=== PATIENT | female | born 2000 | race African-American/Black ===

== ENCOUNTER 2021-02-17 12:27 | Outpatient (REF) | payer SELFPAY ==
[2021-02-20 07:44] LABS: HBS Num1 9.16 mIU/mL (0-7.99)
[2021-02-20 09:01] LABS: HBS Num2 8.64 mIU/mL (0-7.99); HBS Num3 8.97 mIU/mL (0-7.99); ~Hepatitis B Surface Antibody GRAYZONE (Nonreactive)
[2021-02-20 14:51] LABS: TS Negative Control Passed; TS Panel A 0; TS Panel B 0; TS Positive Control Passed; TSpotTB Negative (SeeBelow)
== END 2021-02-17 12:28 | disposition home or self-care (01) ==
LOC: HO.LAB 12:27
PROVIDERS: Visit Provider Internal Medicine
DX: Z02.1 Encounter for pre-employment examination (principal)
CPT/HCPCS: 36415; 86481; 86706

== ENCOUNTER 2024-05-10 10:21 | Emergency (ER) | payer OTHER, SELFPAY ==
--- NOTE | ~2024-05-10 | CT_ITS ---
EXAMINATION: CT ABDOMEN AND PELVIS WITHOUT CONTRAST CLINICAL INFORMATION: Abdominal pain, diarrhea COMPARISON: None available. TECHNIQUE: Multidetector volumetric imaging was performed from the superior aspect of the liver through the pubic symphysis. Sagittal and coronal reformatted images were obtained on the technologist's workstation. This CT examination was performed using dose optimization techniques as appropriate, variously including the following: *Automated exposure control *Adjustment of mA and/or kV according to patient size (this includes techniques or standardized protocols for targeted exams where dose is matched to indication/reason for exam; i.e. extremities or head) *Use of iterative reconstruction technique DLP: 982 mGy-cm FINDINGS: LUNG BASES: The visualized lung bases are unremarkable. LIVER, GALLBLADDER, AND BILIARY TREE: The liver is diffusely low in attenuation in keeping with hepatic steatosis, but otherwise normal in size and shape. No focal hepatic lesion or biliary ductal dilatation is present. The gallbladder is unremarkable with no evidence of radiopaque gallstones, gallbladder wall thickening, or obvious pericholecystic inflammatory changes. PANCREAS: Unremarkable. SPLEEN: Unremarkable. ADRENAL GLANDS: Unremarkable. KIDNEYS AND URETERS: The kidneys are normal in size, shape, and attenuation. No hydronephrosis, hydroureter, or calculi seen. No perinephric stranding. BLADDER: Limited evaluation due to streak artifact from bilateral hip hardware. But appears decompressed. GASTROINTESTINAL TRACT: The small and large bowel are unremarkable. The appendix is unremarkable. ABDOMINAL WALL: No significant hernia is appreciated. LYMPH NODES: Multiple prominent mesenteric lymph nodes, none of which meet pathologic size criteria and are nonspecific. VASCULAR: Unremarkable. PELVIC VISCERA: Unremarkable. OSSEOUS STRUCTURES: Unremarkable. CT/CT abdomen pelvis wo IV con IMPRESSION: 1. No acute abnormality within the abdomen or pelvis. 2. Hepatic steatosis. 3. Multiple prominent mesenteric lymph nodes, none of which meet pathologic size criteria and are nonspecific. Fleischner guidelines were followed. Electronically signed by: Lorna Burton MD 05/10/2024 12:59 PM EDT
[2024-05-10 10:37] VITALS: BP 140/94; PULSE 79; RESP 16; TEMP 36.6; O2SAT 99; BMI 45.7
--- NOTE | 2024-05-10 11:00 | ED.NAVMDI ---
HPI - Nausea/Vomiting/Diarrhea General Chief complaint: Nausea/Vomiting/Diarrhea Stated complaint: Fever diarrhea Time Seen by Provider: 05/10/24 10:58 Source: patient Mode of arrival: ambulatory Limitations: no limitations History of Present Illness ED Provider: Rhina Acosta APRN HPI Narrative: 23-year-old female with no known medical history presents to the ER with 2 weeks of intermittent diarrhea and mid abdominal pain. Patient reports having more than 10 episodes daily of nonbloody diarrhea. There is no associated nausea, vomiting. This morning she had a temperature of 100.3 degrees. No urinary symptoms. Of note she did recently finish a course of amoxicillin for a sinus infection. No recent travel. No sick contact. She does work in the school system. Associated nausea: No Related Data Previous Rx's ?Medication ?Instructions ?Recorded dicyclomine 10 mg capsule 10 mg PO TID PRN abdominal pain 05/10/24 #21 caps Allergies Allergy/AdvReac Type Severity Reaction Status Date / Time No Known Allergies Allergy Verified 05/10/24 10:37 Review of Systems Review of Systems: Yes all other systems are reviewed and are negative Constitutional: Constitutional: Reports no additional constitutional complaints, Denies body ache(s), Denies chills, Reports fever(s) (max temp 100.3), Denies headache(s) and Denies weakness Eyes: Eyes: Reports no additional eye complaints and Denies change in vision ENT: Reports system reviewed and no additional complaints, except as documented, Denies dizziness, Denies headache(s), Denies nasal congestion, Denies nasal discharge and Denies neck pain Cardiovascular: Cardiovascular: Reports no additional cardiovascular complaints, Denies chest pain, Denies leg edema and Denies dyspnea Respiratory: Respiratory: Reports no additional respiratory complaints, Denies cough and Denies dyspnea Gastrointestinal: Gastrointestinal: Reports no additional gastrointestinal complaints, Reports abdominal pain, Reports diarrhea, Denies nausea and Denies vomiting Genitourinary: Genitourinary: Reports no additional female genitourinary complaints and Denies urinary incontinence Musculoskeletal: Musculoskeletal: Reports no additional musculoskeletal complaints, Denies back pain, Denies arthralgias, Denies joint swelling, Denies neck pain, Denies numbness and Denies tingling Integumentary/Breasts: Skin/Breast: Reports system reviewed and no additional complaints, except as docu and Denies rash Neurologic: Reports system reviewed and no additional complaints, except as documented, Denies Abnormal speech present, Denies dizziness, Denies headache(s), Denies numbness, Denies tingling and Denies weakness PMFSH Past Medical History Attestation statement: The following information was validated with the patient. Source: old records reviewed and nursing notes reviewed Social History Social History Smoked in Last 30 Days: No Use of substances other than those prescribed or required for medical reasons: No Advance Directives: No Advance Directives Information Provided: No Physical Exam Vital Signs: Vital Signs: Last Vital Signs Temp 98.2 F 05/10/24 14:04 Pulse 72 05/10/24 14:04 Resp 18 05/10/24 14:04 BP 142/90 H 05/10/24 14:04 Pulse Ox 99 05/10/24 14:04 O2 Del Method Room Air 05/10/24 14:04 BMI result Body Mass Index 45.7 Const: General: cooperative, healthy appearing, comfortable and no acute distress Orientation/consciousness: patient oriented x3 Limitations: no limitations HEENT: Head: Yes normal to inspection Ears: hearing grossly normal bilaterally General nose exam: Normal external nose present Face and sinus: Yes normal facial exam Mouth: Normal oral and palatal mucosa present Throat: Yes posterior oropharynx normal Eyes: General: appearance normal, both eyes and all related structures Pupils: Equal, round and reactive pupils present Neck: Neck: Yes normal visual inspection Chest: Chest palpation & inspection: normal inspection of the chest Resp: Effort & Inspection: normal respiratory effort Auscultation: clear to auscultation bilaterally Cardio: Rate: regular rate Rhythm: regular rhythm Peripheral pulses: Peripheral pulses 2+ throughout GI: Inspection: Yes normal to inspection Palpation (GI): Soft to palpation and Tenderness to palpation present (GI) (mild diffuse tenderness-no rebound or guarding ) Auscultation: normal bowel sounds Back/Spine/Pelvis: Thoracic/Lumbar Spine: thoracic and lumbar spine normal to inspection Skin: General skin exam: no rashes or lesions noted Neuro: General: patient oriented x3, no focal motor deficits and normal sensation to monofilament Cranial nerves: Yes Equal, round and reactive pupils present Cognition (Neuro): normal cognition Speech: No Abnormal speech present Gait exam (Neuro): Normal gait present Motor exam (neuro): 5/5 motor strength present throughout Extrem: General: Yes normal to inspection Course Course Course Narrative: Labs are unremarkable. CT shows no acute finding. Stool studies were sent and are pending. Patient nontoxic, afebrile. Tolerating p.o.. Will discharge home we will follow up with her with the stool studies. Reviewed worrisome signs and symptoms of when to return to the emergency room. Comfortable plan for discharge home Medical Decision Making Medical Decision Making [facility] Narrative: 23-year-old female with no known medical history presents to the ER with 2 weeks of intermittent diarrhea and mid abdominal pain.? Patient reports having more than 10 episodes daily of nonbloody diarrhea.? There is no associated nausea, vomiting.? This morning she had a temperature of 100.3 degrees.? No urinary symptoms.? Of note she did recently finish a course of amoxicillin for a sinus infection. No recent travel.? No sick contact.? She does work in the school system. Abdomen is diffusely tender with no rebound or guarding. Will obtain labs, stool studies, CT Differential Diagnosis Differential Diagnoses: The differential diagnosis associated with the presentation includes Infectious diarrhea, diverticulitis, C diff colitis, gastroenteritis Low suspicion for acute appendicitis, IBD Admission/Observation Consideration of admission/observation: Escalation of care including admission/observation considered Lab Data [facility] Lab Attestation statement: I reviewed the patient's lab results. 05/10/24 11:57 05/10/24 11:57 Labs: Lab Results 05/10/24 Range/Units 11:57 WBC 10.6 (4.8-10.8) X10*3/uL RBC 4.48 (4.20-5.50) X10*6/uL Hgb 10.3 L (12.0-16.0) g/dl Hct 31.9 L (37.0-47.0) % MCV 71.2 L (80.0-98.0) fL MCH 23.0 L (27.0-33.0) pg MCHC 32.3 (31.0-35.0) g/dl RDW 14.9 (11.0-16.0) % Plt Count 244 (160-400) X10*3/uL MPV 11.3 (9.4-12.3) fL Immature Gran % (Auto) 0.4 (0.0-0.4) % Neut % (Auto) 65.7 (45-73) % Lymph % (Auto) 24.3 (20-40) % Sterling % (Auto) 8.5 (2-11) % Eos % (Auto) 0.9 (0-4) % Baso % (Auto) 0.2 (0-2) % Lymph # (Auto) 2.6 (1.2-4.9) X10*3/uL Sterling # (Auto) 0.9 (0.1-1.2) X10*3/uL Eos # (Auto) 0.1 (0.0-0.4) X10*3/uL Baso # (Auto) 0.0 (0.0-0.2) X10*3/uL Abs Immat Gran (auto) 0.04 H (0.00-0.03) X10*3/uL Absolute Neuts (auto) 7.0 (2.0-8.3) x10*3/uL Absolute Nucleated RBC 0.000 (0.0-0.012) X10*3/uL Nucleated RBC % (auto) 0.0 (0.0-0.2) /100WBC Sodium 140 (135-145) mmol/L Potassium 3.5 (3.3-5.1) mmol/L Chloride 105 (96-108) mmol/L Carbon Dioxide 23 (22-29) mmol/L Anion Gap 16 (12-20) BUN 5 L (9-16) mg/dL Creatinine 0.79 (0.5-1.4) mg/dL Estim Creat Clear Calc 160.9 Estimated GFR > 60 Random Glucose 94 (60-115) mg/dL Calcium 9.4 (8.4-10.2) mg/dL Magnesium 1.8 (1.6-2.6) mg/dL Total Bilirubin 0.5 (0.0-1.0) mg/dL Direct Bilirubin 0.2 (0.0-0.5) mg/dL AST 15 (5-31) U/L ALT 16 (0-31) U/L Alkaline Phosphatase 53 (39-117) U/L Total Protein 8.2 H (6.5-8.0) g/dL Albumin 4.3 (3.5-5.0) g/dL Lipase 17 (8-78) U/L Urine Color Yellow Urine Appearance Clear Urine pH 6.0 (5.0-9.0) Ur Specific Mcwilliams 1.020 (1.005-1.025) Urine Protein Negative (Neg-Trace) mg/dL Urine Glucose (UA) Negative (Negative) mg/dL Urine Ketones Negative (Negative) mg/dL Urine Blood Negative (Negative) Urine Nitrite Negative (Negative) Ur Leukocyte Esterase Negative (Negative) Urine RBC 0-2 (0-2) /HPF Urine WBC 0-5 (0-5) /HPF Ur Squamous Epith Cells 0-2 (0-2) /HPF Urine Bacteria None Seen (None Seen) Hyaline Casts 0-2 (0-2) /LPF Urine Test NEGATIVE (NEGATIVE) Influenza Type A (PCR) NEGATIVE (Negative) Influenza Type B (PCR) NEGATIVE (Negative) RSV RNA Qual (PCR) NEGATIVE (Negative) SARS-CoV-2 RNA (RT-PCR) NEGATIVE (Negative) Independent Interpretation I performed an independent interpretation of an: CT Scan Interpretation: I independently reviewed the CT scan agree with the radiology report Radiology Impression Discussion of test interpretation with radiology: I have reviewed the radiologist's reading. Radiologist Impression: [place] [id number] CT Scan Report Signed Patient: Carla Spann MR#: [id number] : 2000 Acct:[id number] Age/Sex: 23 / F ADM Date: 05/10/24 Loc: .ED Attending Dr: Ordering Physician: Rhina Meyer NP Date of Service: 05/10/24 Procedure(s): CT abdomen pelvis wo IV con Accession Number(s): [id number] cc: Physician,Unknown ; Rhina Meyer NP~ EXAMINATION: CT ABDOMEN AND PELVIS WITHOUT CONTRAST CLINICAL INFORMATION: Abdominal pain, diarrhea COMPARISON: None available. TECHNIQUE: Multidetector volumetric imaging was performed from the superior aspect of the liver through the pubic symphysis. Sagittal and coronal reformatted images were obtained on the technologist's workstation. This CT examination was performed using dose optimization techniques as appropriate, variously including the following: *Automated exposure control *Adjustment of mA and/or kV according to patient size (this includes techniques or standardized protocols for targeted exams where dose is matched to indication/reason for exam; i.e. extremities or head) *Use of iterative reconstruction technique DLP: 982 mGy-cm FINDINGS: LUNG BASES: The visualized lung bases are unremarkable. LIVER, GALLBLADDER, AND BILIARY TREE: The liver is diffusely low in attenuation in keeping with hepatic steatosis, but otherwise normal in size and shape. No focal hepatic lesion or biliary ductal dilatation is present. The gallbladder is unremarkable with no evidence of radiopaque gallstones, gallbladder wall thickening, or obvious pericholecystic inflammatory changes. PANCREAS: Unremarkable. SPLEEN: Unremarkable. ADRENAL GLANDS: Unremarkable. KIDNEYS AND URETERS: The kidneys are normal in size, shape, and attenuation. No hydronephrosis, hydroureter, or calculi seen. No perinephric stranding. BLADDER: Limited evaluation due to streak artifact from bilateral hip hardware. But appears decompressed. GASTROINTESTINAL TRACT: The small and large bowel are unremarkable. The appendix is unremarkable. ABDOMINAL WALL: No significant hernia is appreciated. LYMPH NODES: Multiple prominent mesenteric lymph nodes, none of which meet pathologic size criteria and are nonspecific. VASCULAR: Unremarkable. PELVIC VISCERA: Unremarkable. OSSEOUS STRUCTURES: Unremarkable. CT/CT abdomen pelvis wo IV con IMPRESSION: 1. No acute abnormality within the abdomen or pelvis. 2. Hepatic steatosis. 3. Multiple prominent mesenteric lymph nodes, none of which meet pathologic size criteria and are nonspecific. Discharge Plan Discharge Clinical Impression: Diarrhea Patient Disposition: Home, Self-Care Instructions: Acute Diarrhea (ED) Additional Instructions: Drink lots of fluids Avoid Imodium We will follow-up with you with your stool study results Your lab work and CT scan are normal Return for any worsening symptoms Prescriptions: New dicyclomine 10 mg capsule 10 mg PO TID PRN (Reason: abdominal pain) Qty: 21 0RF Referrals: Physician,Unknown J [Primary Care Provider] - 1 week Interventions: ED Discharge Assessment Last Done: 05/10/24 14:04 Discharge Date/Time: 05/10/24 14:04 Print Language: Luxembourgish
[2024-05-10 12:05] LABS: MANUAL DIFF FLAG NO
[2024-05-10 12:08] LABS: Appearance Urine Clear; Color Urine Yellow; Glucose Urine UA Negative (Negative); Leukocyte Esterase Urine Negative (Negative); Nitrite Urine Negative (Negative); Urine Blood Negative (Negative); Urine Ketones Negative (Negative); Urine Protein Negative (Neg-Trace)
[2024-05-10 12:09] LABS: UPreg QC Valid YES; Urine Pregnancy NEGATIVE (NEGATIVE)
[2024-05-10 12:10] LABS: Basophils Percent Auto 0.2 % (0-2); Eosinophils Absolute Auto 0.1 X10*3/uL (0.0-0.4); Eosinophils Percent Auto 0.9 % (0-4); Hematocrit 31.9 % (37.0-47.0); Hemoglobin 10.3 g/dl (12.0-16.0); Imm Gran Abs Auto 0.04 X10*3/uL (0.00-0.03); Imm Gran Pct Auto 0.4 % (0.0-0.4); Lymphocytes Absolute Auto 2.6 X10*3/uL (1.2-4.9); Lymphocytes Percent Auto 24.3 % (20-40); Mean Corpuscular HGB Conc 32.3 g/dl (31.0-35.0); Mean Corpuscular Volume 71.2 fL (80.0-98.0); Mean Platelet Volume 11.3 fL (9.4-12.3); Monocytes Absolute Auto 0.9 X10*3/uL (0.1-1.2); Monocytes Percent Auto 8.5 % (2-11); Neutrophils Percent Auto 65.7 % (45-73); Platelet Count 244 X10*3/uL (160-400); Red Blood Count 4.48 X10*6/uL (4.20-5.50); Red Cell Distribution Width 14.9 % (11.0-16.0); White Blood Count 10.6 X10*3/uL (4.8-10.8)
[2024-05-10 12:11] LABS: Bacteria Urine None Seen (None Seen); Hyaline Casts Urine 0-2 /LPF (0-2); RBC Urine 0-2 /HPF (0-2); Squamous Epithelial Cell Urine 0-2 /HPF (0-2); WBC Urine 0-5 /HPF (0-5)
[2024-05-10 12:24] LABS: Alanine Aminotransferase 16 U/L (0-31); Albumin Level 4.3 g/dL (3.5-5.0); Alkaline Phosphatase 53 U/L (39-117); Anion Gap 16 (12-20); Aspartate Amino Transferase 15 U/L (5-31); Bilirubin Direct 0.2 mg/dL (0.0-0.5); Bilirubin Total 0.5 mg/dL (0.0-1.0); Blood Urea Nitrogen 5 mg/dL (9-16); Calcium 9.4 mg/dL (8.4-10.2); Carbon Dioxide 23 mmol/L (22-29); Chloride 105 mmol/L (96-108); Creatinine Clr Calc Pharmacy 160.9; Estimated Glomerular Filt Rate > 60; Glucose Random 94 mg/dL (60-115); Lipase 17 U/L (8-78); Magnesium 1.8 mg/dL (1.6-2.6); Potassium 3.5 mmol/L (3.3-5.1); Sodium 140 mmol/L (135-145); Total Protein 8.2 g/dL (6.5-8.0)
[2024-05-10 12:43] LABS: Influenza A PCR NEGATIVE (Negative); Influenza B PCR NEGATIVE (Negative); Resp Syncy Virus RNA Qual PCR NEGATIVE (Negative); SARS COV2 PCR INHOUSE NEGATIVE (Negative)
[2024-05-10 14:04] VITALS: BP 142/90; PULSE 72; RESP 18; TEMP 36.8; O2SAT 99
[2024-05-10 14:12] LABS: CDiff Gene PCR POSITIVE (Negative)
[2024-05-10 14:44] LABS: CDiff Toxin Positive (Negative)
[2024-05-10 14:45] LABS: CDIFF Internal ctrl Dots and bkg OK (V)
[2024-05-11 07:18] LABS: Campylobacter Not Detected (Not Detect.); Cryptosporidium Not Detected (Not Detect.); E. coli EAEC Not Detected (Not Detect.); E. coli EPEC Not Detected (Not Detect.); E. coli ETEC Not Detected (Not Detect.); E. coli STEC Not Detected (Not Detect.); Plesiomonas shigelloides Not Detected (Not Detect.); Salmonella Not Detected (Not Detect.); Shigella sp./EIEC Not Detected (Not Detect.); Vibrio Not Detected (Not Detect.); Vibrio Cholerae Not Detected (Not Detect.); Yersinia enterocolitica Not Detected (Not Detect.)
[2024-05-11 07:19] LABS: Adenovirus F 40/41 Not Detected (Not Detect.); Astrovirus Not Detected (Not Detect.); Cyclospora cayetanensis Not Detected (Not Detect.); Entamoeba histolytica Not Detected (Not Detect.); Giardia lamblia Not Detected (Not Detect.); Norovirus GI/GII Not Detected (Not Detect.); Rotavirus A Not Detected (Not Detect.); Sapovirus Not Detected (Not Detect.)
== END 2024-05-10 14:04 | disposition home or self-care (01) ==
PROVIDERS: Nurse Practitioner Family; Emergency Provider Emergency Medicine
DX: R11.2 Nausea with vomiting, unspecified (principal); R19.7 Diarrhea, unspecified; R50.9 Fever, unspecified; R10.9 Unspecified abdominal pain; Z03.818 Encounter for observation for suspected exposure to other biological agents ruled out; Z79.899 Other long term (current) drug therapy
CPT/HCPCS: 0241U; 36415; 74176; 80053; 81001; 81025; 82248; 83690; 83735; 85025; 87324; 87493; 87507; 99284

== ENCOUNTER 2025-05-08 10:35 | Emergency (ER) | payer OTHER, SELFPAY ==
--- OUTSIDE RECORDS SUMMARY | 2005-01-06 05:32 | XMS_ITS | Continuity of Care Document ---
Author Organization [facility] Address [address] [place] [address] Phone Care Team Providers Care Gravedigger Name Role Phone Nellie Mcmahan MD Unavailable Unavailable Advance Directives Directive Yes / No Effective Date File Name No Information Encounters Encounter Description Practice Location Reason(s) For Visit Diagnoses Date Provider Providers Copied on Encounter [facility], [address], [place], [place], [id number] , tel: [phone] [facility] Chronic RhinitisRespir atory Abnorm NecAllergic Rhinitis Nos 4200 5 Martir Ballard. [address] , [address], [id number], [place]. tel:[phone] [facility], [address], [place], [place], [id number] , tel: [phone] [facility] Chronic RhinitisRespir atory Abnorm NecAllergic Rhinitis Nos 8200 5 Martir Ballard. [address], [facility] [address], [place], [place], [id number], [place]. tel:[phone] Referring Provider: Franco Pantoja MD, [address] [address], [place], [address]. tel:[phone] [facility], [address], [place], [id number] , [place] tel: [phone] [facility] Hypertrophy T And AChronic Rhinitis 0 5-200 5 Kit Gamez. [address] [facility], [address], [place], [place], [id number], [place]. tel:[phone] Referring Provider: Judi Galdamez, [address] [facility], [place], [address]. Family History Family Member Type Diagnosis Age At Onset No Information Payers Payer name Insurance type Covered republican ID Authoriza tion(s) No Information Social History Type Description Quantity Date Captured Comments Sex Female Smoking Status No Information Chief Complaint And Reason For Visit No Information Reason For Referral Reason For Referral No Information History Of Present Illness Encounter Date Complaint History Of Prese nt Illness No Information Functional Status Date Functional Assessmen t No Information Instructions Date Instruction Additional Infor mation No Information Assessments Type Assessment Date No Information Patient Care Teams Name Effective Dates (start - stop) Status Members No Information
[2025-05-08 10:38] VITALS: BP 164/100; PULSE 70; RESP 20; TEMP 35.8; O2SAT 100; BMI 46.1
[2025-05-08 10:57] LABS: MANUAL DIFF FLAG NO
[2025-05-08 11:02] LABS: Hematocrit 33.8 % (37.0-47.0); Hemoglobin 11.1 g/dl (12.0-16.0); Imm Gran Abs Auto 0.03 X10*3/uL (0.00-0.03); Imm Gran Pct Auto 0.4 % (0.0-0.4); Lymphocytes Absolute Auto 2.6 X10*3/uL (1.2-4.9); Mean Corpuscular HGB Conc 32.8 g/dl (31.0-35.0); Mean Corpuscular Hemoglobin 23.6 pg (27.0-33.0); Mean Corpuscular Volume 71.8 fL (80.0-98.0); NRBC Abs Auto 0.000 X10*3/uL (0.0-0.012); NRBC Pct Auto 0.0 /100WBC (0.0-0.2); Platelet Count 283 X10*3/uL (160-400); Red Blood Count 4.71 X10*6/uL (4.20-5.50); White Blood Count 8.3 X10*3/uL (4.8-10.8)
--- NOTE | 2025-05-08 11:11 | PC.NURSE ---
patient a&ox3, rr equal/non labored, pt had c/o 12/12 abd pain, labs previously drawn, pt aware we need stool samples- hat at bedside, pt awaiting provider eval, call castillo within reach, plan of care ongoing
[2025-05-08 11:13] LABS: Alanine Aminotransferase 17 U/L (0-31); Albumin Level 4.7 g/dL (3.5-5.0); Alkaline Phosphatase 57 U/L (39-117); Anion Gap 12 (12-20); Aspartate Amino Transferase 16 U/L (5-31); Blood Urea Nitrogen 8 mg/dL (9-16); Calcium 9.2 mg/dL (8.4-10.2); Carbon Dioxide 26 mmol/L (22-29); Chloride 105 mmol/L (96-108); Creatinine Clr Calc Pharmacy 176.0; Estimated Glomerular Filt Rate > 60; Lipase 26 U/L (8-78); Potassium 4.0 mmol/L (3.3-5.1); Sodium 139 mmol/L (135-145); Total Protein 8.2 g/dL (6.5-8.0)
--- OUTSIDE RECORDS SUMMARY | 2025-05-08 11:48 | XMS_ITS | Clinical Summary ---
Author Organization [facility] Address [address] [place] [address] Phone Care Team Providers Care Grades 7 8 Tutor Name Role Phone Kimberly Brantley MD Primary Care Provider + Allergies No known active allergies Medications No known medications Social History Tobacco Use Types Packs/Day Years Used Date Smoking Tobacco: Never Smokeless Tobacco: Never Alcohol Use Standard Drinks/Week Comments Never 0 (1 standard drink = 0.6 oz pur e alcohol) Education Answer Date Recorded Are you interested in more education? Not on debora e 11/30/2022 Are you concerned about learning? Not on file 11/30/2022 No 11/30/2022 No 11/30/2022 Digital Access Answer Date Recorded No 01/01/2023 No 01/01/2023 No 01/01/2023 Reliable internet access at home? Not on file 01/01/2023 Device with a working camera? Not on file Comments Unknown Sex and Gender Information Value Date Recorded Sex Assigned at Not on file Legal Sex Female 12:03 PM EDT Gender Identity Not on file Sexual Orientation Not on file Last Filed Vital Signs Vital Sign Reading Time Taken Comments Blood Pressure 129/81 05/17/2019 4:47 PM EDT Pulse 67 05/17/2019 4:47 PM EDT Temperature 37 C (98.6 F) 05/17/2019 4:47 PM EDT Respiratory Rate 16 05/17/2019 4:47 PM EDT Oxygen Saturation 98% 05/17/2019 4:47 PM EDT Inhaled Oxygen Concentration - - Weight 121.1 kg (267 lb) 05/17/2019 1:05 PM EDT Height 170.2 cm (5' 7 ) 05/17/2019 1:05 PM EDT Body Mass Index 41.82 05/17/2019 1:05 PM EDT Plan of Treatment Not on file Medical Devices Not on file Insurance [place] [address] [place], [place] [address]HEALTH Care Teams Grades 7 8 Tutor Relationship Specialty Start Date End Date Kimberly Brantley MD [address] [place] [id number] PCP - General Pediatrics 05/17/19 Additional Source Comments The information contained in this document represents components of the legal health record. It is not the complete legal health record.[facility]
--- NOTE | 2025-05-08 12:48 | ED.GENADULT ---
HPI - General Adult General Chief complaint: Nausea/Vomiting/Diarrhea Stated complaint: diarrhea for 3 days Time Seen by Provider: 05/08/25 11:34 Source: patient, RN notes reviewed and old records reviewed Mode of arrival: ambulatory Limitations: no limitations History of Present Illness ED Provider: SHEYLA Hernandez HPI narrative: 24-year-old female without significant medical history presents to the ED due to 3 days of diarrhea. Patient states Saturday night she developed soft stools, with and Saturday having significant watery diarrhea up to 10 episodes per day. Patient states watery diarrhea has improved somewhat and is now having soft stools. Patient states she has noticed some yellow stools, she is concerned as she has past history of C.Diff last year which occured after being on amoxicillin and states the smell of her stool is similar to the smell her stool had when she had C.Diff. Patient states the diarrhea is associated with gurgling sensation in her stomach and nausea. Patient states she has sensation of abdominal pressure when she needs to move her bowels. Denies recent travel, exposure to streams/lakes/[place], restaurants, recent abx use. 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 Denies fevers, chills, chest pain, SOB, abd pain, vomiting MD complaint: diarrhea x3 days Related Data Previous Rx's ?Medication ?Instructions ?Recorded dicyclomine 10 mg capsule 10 mg PO TID PRN abdominal pain 05/10/24 #21 caps vancomycin 125 mg capsule 125 mg PO QID 10 days #40 caps 05/12/24 Allergies Allergy/AdvReac Type Severity Reaction Status Date / Time No Known Allergies Allergy Verified 05/08/25 10:41 Review of Systems Review of Systems: CONST: Negative for fever, body aches and chills. HENT: Negative for neck pain/stiffness, headache, congestion, sore throat, swelling. EYES: Negative for discharge/pain or vision changes. RESP: Negative for cough/hemoptysis and shortness of breath. CV: Negative chest pain, difficulty breathing, palpitations. ABD: Negative pain, nausea, vomiting. POS abdominal gurgling, pressure : Negative increase frequency, dysuria, blood in urine or stool. POS soft stools MUSC: Negative for muscle aches, edema. SKIN: Negative rash, lesions/sores. NEURO: Negative headache, dizziness, weakness. Yes all other systems are reviewed and are negative [facility] Social History Social History Alcohol intake: current Alcohol intake frequency: holidays/special occasions only Smoked in Last 30 Days: No Use of substances other than those prescribed or required for medical reasons: No Advance Directives: No Advance Directives Information Provided: Yes Do you have a plan to hurt others: No Plan Patient : No Physical Exam ED Vital Signs: Vital Signs - 24 hr 05/08/25 10:38 05/08/25 13:42 Temperature 96.4 F L 98.4 F Pulse Rate 70 61 Respiratory Rate 20 16 Blood Pressure 164/100 H 136/91 H Pulse Oximetry 100 99 Oxygen Delivery Method Room Air BMI result Body Mass Index 46.1 GENERAL APPEARANCE: ?AxOx4, generally well-appearing, no acute distress. HEENT: ?NC, AT. MMM. EOMI, clear conjunctiva, oropharynx clear. NECK: ?Supple without lymphadenopathy.? No stiffness or restricted ROM. HEART:? Normal rate and regular rhythm, normal S1/S2, no m/r/g LUNGS:? CTAB, moving air well. No crackles or wheezes are heard. ABDOMEN: ?Soft, nondistended, no rigidity, no guarding, negative Shaikh's sign, no rebound tenderness, patient states she does not have significant pain but has sensation of pressure when palpating the abdomen. BACK: No CVAT, no obvious deformity. EXTREMITIES: ?Without cyanosis, clubbing or edema. NEUROLOGICAL: ?Grossly nonfocal. Alert and oriented, moving all 4 extremities. Observed to ambulate with normal gait. Skin: ?Warm and dry without any rash. Medications Administered Discontinued Medications Generic Name Dose Route Start Last Admin Trade Name Freq PRN Reason Stop Dose Admin Lactated Ringer's 1,000 mls @ 999 mls/hr 05/08/25 13:13 05/08/25 13:41 Lr IV 05/08/25 14:13 999 mls/hr .Q1H1M ONE Administration Medical Decision Making Medical Decision Making MDM Narrative: 24-year-old female without significant medical history presents to the ED for 3 days of watery diarrhea that started out as soft stool, progressed 10+ watery diarrhea episodes per day, and has now returned to soft stool. Denies recent travel, exposure to fresh bodies of water. Patient is concerned for C diff as she has history of C diff infection last year after amoxicillin therapy, states smell is somewhat similar. Patient is passing flatus VS on initial observation-BP 136/91, pulse rate of 61, respiratory rate of 16, afebrile with oral temp of 98.4?, O2 saturation 99% on room air. On physical exam abdomen is Soft, nondistended, no rigidity, no guarding, negative Shaikh's sign, no rebound tenderness, patient states she does not have significant pain but has sensation of intense pressure when palpating the abdomen. Patient given IV fluids, awaiting stool sample. Labs without leukocytosis/leukopenia, H&H stable, no electrolyte abnormality, Patient is very well-appearing, sitting up in the stretcher, nontoxic appearing, in no acute distress. Patient states she feels improved after IV fluids. Was unable to move her bowels while in the department today. I gave patient the option of waiting to see if she is able to move her bowels, or counseling her to follow up with her primary care doctor for a home stool steady. Patient decided that she would like to follow up with her primary care doctor she has been in the department for approximately 5 hours without being able to move her bowels. Patient without red flag symptoms of diarrhea as she is afebrile, without significant abdominal pain, no recent antibiotic use, no recent travel, no elevated WBC count, no blood or mucus noted in the diarrhea. Patient appropriate to go home for self-care and follow up with her primary care doctor. Patient is in agreement with the plan. Differential Diagnosis Differential Diagnoses: The differential diagnosis associated with the presentation includes Infectious diarrhea Viral illness food borne illness Admission/Observation Consideration of admission/observation: Escalation of care including admission/observation considered Lab Data MDM Lab Attestation statement: I reviewed the patient's lab results. 05/08/25 10:48 05/08/25 10:48 Labs: Lab Results 05/08/25 05/08/25 Range/Units 10:48 13:46 WBC 8.3 (4.8-10.8) X10*3/uL RBC 4.71 (4.20-5.50) X10*6/uL Hgb 11.1 L (12.0-16.0) g/dl Hct 33.8 L (37.0-47.0) % MCV 71.8 L (80.0-98.0) fL MCH 23.6 L (27.0-33.0) pg MCHC 32.8 (31.0-35.0) g/dl RDW 14.8 (11.0-16.0) % Plt Count 283 (160-400) X10*3/uL MPV 11.8 (9.4-12.3) fL Immature Gran % (Auto) 0.4 (0.0-0.4) % Neut % (Auto) 60.2 (45-73) % Lymph % (Auto) 30.8 (20-40) % [place] % (Auto) 7.2 (2-11) % Eos % (Auto) 1.2 (0-4) % Baso % (Auto) 0.2 (0-2) % Lymph # (Auto) 2.6 (1.2-4.9) X10*3/uL [place] # (Auto) 0.6 (0.1-1.2) X10*3/uL Eos # (Auto) 0.1 (0.0-0.4) X10*3/uL Baso # (Auto) 0.0 (0.0-0.2) X10*3/uL Abs Immat Gran (auto) 0.03 (0.00-0.03) X10*3/uL Absolute Neuts (auto) 5.0 (2.0-8.3) x10*3/uL Absolute Nucleated RBC 0.000 (0.0-0.012) X10*3/uL Nucleated RBC % (auto) 0.0 (0.0-0.2) /100WBC Sodium 139 (135-145) mmol/L Potassium 4.0 (3.3-5.1) mmol/L Chloride 105 (96-108) mmol/L Carbon Dioxide 26 (22-29) mmol/L Anion Gap 12 (12-20) BUN 8 L (9-16) mg/dL Creatinine 0.72 (0.5-1.4) mg/dL Estim Creat Clear Calc 176.0 Estimated GFR > 60 Random Glucose 123 H (60-115) mg/dL Calcium 9.2 (8.4-10.2) mg/dL Total Bilirubin 0.1 (0.0-1.0) mg/dL Direct Bilirubin < 0.2 (0.0-0.5) mg/dL AST 16 (5-31) U/L ALT 17 (0-31) U/L Alkaline Phosphatase 57 (39-117) U/L Total Protein 8.2 H (6.5-8.0) g/dL Albumin 4.7 (3.5-5.0) g/dL Lipase 26 (8-78) U/L COVID-19 (JUVENAL) Negative (Negative) COVID-19 Clin Com See Note Influenza Type A (ISELA) Negative (Negative) Influenza Type B (ISELA) Negative (Negative) Influenza A & B Note See Note External Record Review External record reviewed: Inpatient record, Office record and Outpatient record Prescription Management I considered prescription management with: Antibiotic I considered antibiotic therapy however patient with 3 days of diarrhea that has now improved to soft stool, patient afebrile, without leukocytosis, no blood in the diarrhea, no indication for antibiotic use at this time. Chronic Conditions Patient?s care impacted by: Other (No known medical history) Discharge Plan Discharge Clinical Impression: Diarrhea Patient Disposition: Home, Self-Care Additional Instructions: You were evaluated in the ED today due to 3 days of diarrhea. Your lab work was reassuring as there was no elevation in your white blood cell count. Your physical exam was reassuring as you were afebrile, abdomen was soft, without significant tenderness. You were given the option for a stool steady today but were unable to move your bowels while in the department. I suggest that you follow up with your primary care doctor as they will be able to send you for a home stool steady if your diarrhea persists. Please keep up with oral hydration such as Gatorade, Pedialyte, Powerade. Please eat a bland diet and advance as her symptoms improve. Please return to the emergency department if you experience fevers over 100.4?, worsening diarrhea, blood in the diarrhea, abdominal pain, vomiting, or any new/worsening/concerning symptoms. Prescriptions: No Action dicyclomine 10 mg capsule 10 mg PO TID PRN (Reason: abdominal pain) Qty: 21 0RF vancomycin 125 mg capsule 125 mg PO QID 10 Days Qty: 40 0RF Print Language: Uzbek
[2025-05-08] MEDS: Lactated Ringers 1,000 ML 999 ML IV (13:41)
[2025-05-08 13:42] VITALS: BP 136/91; PULSE 61; RESP 16; TEMP 36.9; O2SAT 99
--- NOTE | 2025-05-08 13:48 | PC.NURSE ---
iv inserted, vss, ivf hung per order, pt has 3-4/10 abd pain, call castillo within reach, plan of care ongoing
[2025-05-08 14:20] LABS: COVID-19 Test Negative (Negative); IDNOW Serial# 16C4AD1C
[2025-05-08 14:21] LABS: IDNOW Serial# 152EDE1D; Influenza B2 Negative (Negative)
--- NOTE | 2025-05-08 15:15 | PC.NURSE ---
ivf continue to run slowly
[2025-05-08 15:53] VITALS: BP 132/88; PULSE 68; RESP 18; TEMP 36.8; O2SAT 99
== END 2025-05-08 15:55 | disposition home or self-care (01) ==
PROVIDERS: Emergency Provider Emergency Medicine; PCP Dentist General Practice
DX: R19.7 Diarrhea, unspecified (principal); R11.2 Nausea with vomiting, unspecified; Z11.52 Encounter for screening for COVID-19; Z79.899 Other long term (current) drug therapy
CPT/HCPCS: 36415; 80048; 80076; 83690; 85025; 87502; 87635; 96360; 99284; J7120